=== PATIENT | female | born 1980 | race Caucasian/White ===

== ENCOUNTER 2021-02-18 11:11 | Emergency (ER) | payer OTHER, SELFPAY ==
[2021-02-18 11:18] VITALS: BP 122/58; PULSE 55; RESP 16; TEMP 35.9; O2SAT 97; BMI 28.3
--- NOTE | 2021-02-18 11:43 | ECG_ITS ---
Test Reason : [facility] Blood Pressure : / mmHG Vent. Rate : 058 BPM Atrial Rate : 058 BPM P-R Int : 170 ms QRS Dur : 084 ms QT Int : 518 ms P-R-T Axes : 041 028 036 degrees QTc Int : 508 ms Sinus bradycardia RSR' or QR pattern in V1 suggests right ventricular conduction delay Prolonged QT Abnormal ECG No previous ECGs available Referred By: Helen Hart Electronically Signed By:DAGOBERTO MILLER MD
[2021-02-18 12:26] LABS: Amphetamine Screen Urine Not Detected (Not Detect); Barbiturates, Urine Not Detected (Not Detect); Benzodiazepines Screen Urine Not Detected (Not Detect); Cannabinoid Screen Urine POSITIVE (Not Detect); Cocaine Screen Urine POSITIVE (Not Detect); Fentanyl, urine POSITIVE (Not Detect); Opiate Screen Urine POSITIVE (Not Detect); Phencyclidine Screen Urine Not Detected (Not Detect)
[2021-02-18 12:30] LABS: COVID-19 Test Negative (Negative); IDNOW Serial# 9DD0AD1C
--- NOTE | 2021-02-18 12:51 | ED_ITS ---
HPI - Medical Clearance General Chief complaint: Medical Clearance Stated complaint: medical clearance Time Seen by Provider: 02/18/21 11:43 Source: patient Mode of arrival: ambulatory History of Present Illness HPI Narrative: 40-year-old female presenting to the ED for medical clearance to return to assisted/program s/p leaving yesterday and using cocaine and drinking 1 shot of ETOH. Denies other illicit substances. Reports feeling tired at present secondary to staying out all night. Denies CP/SOB, abdominal pain, nausea/vomiting MD complaint: medical clearance requested Onset (ago): hour(s) Related Information Allergies Allergy/AdvReac Type Severity Reaction Status Date / Time No Known Allergies Allergy Unverified 02/18/21 11:43 Review of Systems Review of Systems: Constitutional: No Fever, No Chills, +fatigue ENT/Mouth: No Ear Pain, No Nasal Congestion, No Sinus Pain, No Hoarseness, No sore throat Cardiovascular: No Chest Pain, No SOB Respiratory: No Cough, No Wheezing Gastrointestinal: No Nausea, No Vomiting, No Diarrhea, No Constipation, No Abdominal pain Genitourinary:No Dysuria, No Urinary Frequency, No Hematuria, No Flank Pain Musculoskeletal: No joint pain, No Myalgias, No Joint Swelling Skin: No Skin Lesions, No rash Neuro: No Weakness, No Paresthesias Yes all other systems are reviewed and are negative [facility] Past Medical History Attestation statement: The following information was validated with the patient. Medical History (Updated 02/18/21 @ 13:01 by WESLEY Bains) delivery delivered Right knee meniscal tear Social History Social History Advance Directives: No Advance Directives Information Provided: No Patient : No Physical Exam Vital Signs: Vital Signs: Last Vital Signs Temp 96.7 F L 02/18/21 11:18 Pulse 55 02/18/21 11:18 Resp 16 02/18/21 11:18 BP 122/58 L 02/18/21 11:18 Pulse Ox 97 02/18/21 11:18 Body Mass Index 28.3 Const: General: cooperative, healthy appearing, no acute distress, well developed, alert and awake Orientation/consciousness: patient oriented x3 Limitations: no limitations HENMT: Head: Yes normal to inspection Ears: hearing grossly normal bilaterally General nose exam: Normal external nose present Face and sinus: Yes normal facial exam Eyes: General: appearance normal, both eyes and all related structures EOM: EOMs intact bilaterally Neck: Neck: Yes normal visual inspection and Yes no meningeal signs Resp: Effort & Inspection: normal respiratory effort Auscultation: clear to auscultation bilaterally, no rhonchi and no wheezes Cardio: Rate: regular rate Heart sounds: S1 normal heart sound present and S2 normal heart sound present GI: Inspection: Yes normal to inspection Palpation (GI): Soft to palpation, nontender, no guarding and not rigid Skin: Rashes: no rashes Wounds: no wounds Neuro: General: patient oriented x3 and no meningeal signs Gait exam (Neuro): Normal gait present Extrem: General: Yes normal to inspection Course Course Course Narrative: -1251--patient's tox screen positive for opiates, fentanyl, cocaine, and THC -COVID-19 negative MDM - Medical Clearance MDM Narrative Medical decision making narrative: 40-year-old female presenting to the ED for medical clearance to return to assisted/program s/p leaving yesterday and using cocaine and drinking 1 shot of ETOH. On exam vital signs stable, NAD/nontoxic. Will obtain drug screen, EKG, and COVID-19 testing Medical Records Attestation: I reviewed the patient's medical records. Lab Data Attestation: I reviewed the patient's lab results. Labs: Lab Results 02/18/21 02/18/21 Range/Units 11:54 11:54 Urine Opiates Screen POSITIVE H (Not Detect) Urine Fentanyl Screen POSITIVE H (Not Detect) Ur Barbiturates Screen Not Detected (Not Detect) Ur Phencyclidine Scrn Not Detected (Not Detect) Ur Amphetamines Screen Not Detected (Not Detect) U Benzodiazepines Scrn Not Detected (Not Detect) Urine Cocaine Screen POSITIVE H (Not Detect) U Marijuana (THC) Screen POSITIVE H (Not Detect) COVID-19 (MYCHAL) Negative (Negative) COVID-19 Clin Com See Note ECG Data Attestation: I personally reviewed and interpreted this ECG as follows: ECG interpretation date: 02/18/21 ECG interpretation time: 11:59 Prior ECG tracings: not available for review Interpretation: EKG sinus bradycardia at a rate of 58. Q-wave in lead 3 and AVF. Poor R-wave progression in leads V1, V2 and V3. Prolonged QT 508. No STEMI. Likely old changes. Discharge Plan Discharge Clinical Impression: Substance abuse Patient Disposition: Home, Self-Care Instructions: Polysubstance Abuse (ED) Additional Instructions: Your medically cleared to return to your assisted Your COVID-19 is negative Rest, stay hydrated Do not use drugs or alcoholic and kill you Follow-up with your doctor Referrals: Melissa Saavedra NP [Primary Care Provider] - 2 days Interventions: ED Discharge Assessment Last Done: 02/18/21 13:43 Discharge Date/Time: 02/18/21 13:43
== END 2021-02-18 13:43 | disposition home or self-care (01) ==
PROVIDERS: Physician Assistant; Emergency Provider Emergency Medicine; PCP Hospitalist
DX: Z02.2 Encounter for examination for admission to residential institution (principal); F19.10 Other psychoactive substance abuse, uncomplicated; Z20.822 Contact with and (suspected) exposure to COVID-19
CPT/HCPCS: 36415; 80307; 87635; 93005; 99283; 99284

== ENCOUNTER 2023-10-28 14:31 | Emergency (ER) | payer OTHER, SELFPAY ==
--- NOTE | ~2023-10-28 | XR_ITS ---
EXAMINATION: XR HAND/WRIST, LEFT CLINICAL INFORMATION: Pain. Numbness in fingers. COMPARISON: None TECHNIQUE: PA, lateral, oblique, and scaphoid views of the left hand and wrist. FINDINGS: The bones and soft tissues are normal. No fracture. Alignment is anatomic. Joint spaces are maintained. No erosions or soft tissue calcifications. XR/XR hand wrist LT IMPRESSION: Normal radiographs of the hand and wrist.
--- NOTE | ~2023-10-28 | XR_ITS ---
EXAMINATION: XR HAND/WRIST, RIGHT CLINICAL INFORMATION: Pain. Numbness in fingers. COMPARISON: None TECHNIQUE: PA, lateral, oblique, and scaphoid views of the right hand and wrist. FINDINGS: The bones and soft tissues are normal. No fracture. Alignment is anatomic. Joint spaces are maintained. No erosions or soft tissue calcifications. XR/XR hand wrist RT IMPRESSION: Normal radiographs of the hand and wrist.
[2023-10-28 14:41] VITALS: BP 148/77; PULSE 67; RESP 18; TEMP 37.1; O2SAT 98; BMI 26.9
--- NOTE | 2023-10-28 14:46 | ED.UPPEXIN ---
HPI - Extremity Injury (Upper) General Chief Complaint: Extremity Problem Stated Complaint: dx rheumatoid arthritis, hand pain Time Seen by Provider: 10/28/23 16:29 Source: patient Mode of arrival: ambulatory Limitations: no limitations History of Present Illness ED Provider: nabor HPI narrative: Patient with chronic ongoing pain in both hands seen PCP rheumatoid factor was positive diagnose rheumatoid arthritis comes here as pain is not getting better using gabapentin patient has not seen a pigment grinder no swelling of the joints no other joints were involved no fever no chills no rash Related Data Previous Rx's ?Medication ?Instructions ?Recorded prednisone 10 mg tablets in a dose 10 mg PO DIRECTED #30 ea 10/28/23 pack Allergies Allergy/AdvReac Type Severity Reaction Status Date / Time No Known Allergies Allergy Verified 10/28/23 14:47 Review of Systems Review of Systems: Yes all other systems are reviewed and are negative PMFSH Past Medical History Medical History delivery delivered Right knee meniscal tear Social History Social History Advance Directives: No Advance Directives Information Provided: No Do you have a plan to hurt others: No Plan Physical Exam Vital Signs: Vital Signs: Last Vital Signs Temp 98.0 F 10/28/23 17:11 Pulse 63 10/28/23 17:11 Resp 16 10/28/23 17:11 BP 142/59 H 10/28/23 17:11 Pulse Ox 98 10/28/23 17:11 O2 Del Method Room Air 10/28/23 17:11 BMI result Body Mass Index 26.9 Extrem: Hand/finger images: 1. Diffuse tenderness without synovial swelling 2. Diffuse tenderness without synovial swelling Course Course Course Narrative: This is a Rapid Medical Examination (RME) performed by Tamar Harmon PA-C in triage. Full HPI, ROS, assessment and treatment plan per primary provider in the Main ED. 42 yo female hx of substance abuse on 70mg methadone daily and rheumatoid arthritis here for eval of acute on chronic wrist pain x1 week. reports waking up at 0300 with worsening pain in her b/l wrists (L>2) with numbness/tingling into all digits. Has been taking 800 mg gabapentin t.i.d. and approximately 3000 mg of Tylenol daily without improvement. She does have a follow-up appointment with her PCP on 11/09/2023 however is not able to get any sooner. Denies new injury or trauma. Plan: X-rays ordered Medications Administered Discontinued Medications Generic Name Dose Route Start Last Admin Trade Name Graciela PRN Reason Stop Dose Admin Prednisone 60 mg 10/28/23 16:49 10/28/23 17:11 Prednisone 20 Mg Tablet PO 10/28/23 16:50 60 mg ONCE ONE Administration Medical Decision Making Medical Decision Making [facility] Narrative: Patient's history of rheumatoid arthritis complaining of pain in both hands for last few months give a trial prednisone advised to follow with pigment grinder Independent Interpretation I performed an independent interpretation of an: Plain X-Ray Interpretation: Negative Discharge Plan Discharge Clinical Impression: Arthralgia Patient Disposition: Home, Self-Care Instructions: Arthralgia (ED) Additional Instructions: CONTINUE GABAPENTIN AND START TAKING TAPERING DOSE OF PREDNISONE PRESCRIBED TAKE IBUPROFEN/TYLENOL NEEDED FOLLOW UP WITH HOT STICK WORKER FOR FURTHER EVALUATION Prescriptions: New prednisone 10 mg tablets,dose pack 10 mg PO DIRECTED Qty: 30 0RF Rx Instructions: see taper instructions; 40 mg Daily x3 days, 30 mg daily x3 days, 20 mg daily x3 days, 10 mg daily x3 days Referrals: Shakeel Tyson MD [Physician] - Stand Alone Forms: Work/School Release Interventions: ED Discharge Assessment Last Done: 10/28/23 17:11 Discharge Date/Time: 10/28/23 17:12 Print Language: Syriac
[2023-10-28 17:04] VITALS: BP 142/59; PULSE 63; RESP 16; TEMP 36.7; O2SAT 98
[2023-10-28 17:11] VITALS: BP 142/59; PULSE 63; RESP 16; TEMP 36.7; O2SAT 98
[2023-10-28] MEDS: predniSONE 20 MG TABLET 60 MG PO (17:11)
== END 2023-10-28 17:12 | disposition home or self-care (01) ==
PROVIDERS: Emergency Provider Internal Medicine
DX: M79.642 Pain in left hand (principal); M79.641 Pain in right hand; F19.10 Other psychoactive substance abuse, uncomplicated; F11.20 Opioid dependence, uncomplicated; M06.9 Rheumatoid arthritis, unspecified
CPT/HCPCS: 73110; 73130; 99283